=== PATIENT | male | born 1995 | race Caucasian/White ===

== ENCOUNTER → 2019-12-10 | Outpatient (CLI) | payer OTHER ==
--- NOTE | 2019-12-10 10:53 | Diagnostic Imaging Report ---
PROCEDURE: MRI lumbar spine. TECHNIQUE: Multiplanar, multisequence MRI of the lumbar spine was performed without contrast. INDICATION: Low back pain which radiates into the right side. Lumbar spinal curvature and alignment are unremarkable. Vertebral body heights are maintained. Conus medullaris has a normal appearance at the T12 level. There is desiccation of the L4-L5 and L5-S1 discs. At L4-L5 there is mild annular bulging without evidence of significant spinal or neural foraminal stenosis. At L5-S1 there is left lateral bulging and protrusion. This results in moderate left neural foraminal stenosis. There is no marrow signal abnormality to suggest a fracture. IMPRESSION: Left lateral bulge and protrusion at L5-S1 result in moderate left neural foraminal stenosis. Otherwise there is mild L4-L5 disc desiccation without central spinal stenosis or other significant neural foraminal stenosis in the lumbar spine. Dictated by: Dictated on workstation # [id number]
== END ==
LOC: RAD 09:11 → EDSEX 09:30
PROVIDERS: ATTEND Nurse Practitioner Family
DX: M48.07 Spinal stenosis, lumbosacral region (principal); M51.16 Intervertebral disc disorders with radiculopathy, lumbar region
CPT/HCPCS: 72148